=== PATIENT | female | born 1975 | race African-American/Black ===

== ENCOUNTER 2017-01-17 18:42 | Emergency (ER) | payer BC, OTHER ==
--- NOTE | 2017-01-17 19:25 | ER Document Report ---
ED Medical Screen (RME) - General Chief Complaint: Chest Pain Stated Complaint: CHEST PAIN, LEFT LEG PAIN Time Seen by Provider: 01/17/17 19:21 Notes: Patient presents with chest pain shortness of breath and left leg swelling and pain. She states the left leg has been swelling and painful for approximately 2 weeks. She states she has a history of blood clots and has had 4 previous pulmonary embolisms. She states she is currently on Eliquis but she forgets to take it 3-4 days per week. TRAVEL OUTSIDE OF THE [place] IN LAST 30 DAYS: No - Related Data Allergies/Adverse Reactions: narcotics Allergy (Uncoded 01/17/17 18:52) Home Medications: Current Home Medications Apixaban [Eliquis] 1 tab PO BID 01/17/17 [History] Atorvastatin Calcium [Atorvastatin Calcium] 1 tab PO DAILY 01/17/17 [History] Canagliflozin [Invokana] 1 tab PO DAILY 01/17/17 [History] Lisinopril/Hydrochlorothiazide [Lisinopril-Hctz 20-25 mg Tab] 1 tab PO DAILY [History] Omeprazole [Omeprazole] 1 cap PO DAILY 01/17/17 [History] Past Medical History - Social History Chew tobacco use (# tins/day): No Frequency of alcohol use: None Drug Abuse: None - Past Medical History Cardiac Medical History: Reports: Hx Hypertension Pulmonary Medical History: Reports: Hx Asthma Endocrine Medical History: Reports: Hx Diabetes Mellitus Type 2 Renal/ Medical History: Denies: Hx Peritoneal Dialysis Physical Exam - Vital signs Vitals: Temp Pulse Resp BP Pulse Ox 97.6 F 81 14 137/93 H 100 01/17/17 18:52 01/17/17 18:52 01/17/17 18:52 01/17/17 18:52 01/17/17 18:52 Course - Vital Signs Vital signs: Temp Pulse Resp BP Pulse Ox 97.6 F 81 14 137/93 H 100 01/17/17 18:52 01/17/17 18:52 01/17/17 18:52 01/17/17 18:52 01/17/17 18:52
[2017-01-17 19:52] LABS: ABSOLUTE BASOPHILS # (AUTO) 0.1 10^3/uL (0.0-0.2); ABSOLUTE EOSINOPHILS # (AUTO) 0.1 10^3/uL (0.0-0.6); ABSOLUTE LYMPHOCYTES (AUTO) 2.3 10^3/uL (0.5-4.7); ABSOLUTE MONOCYTES (AUTO) 0.6 10^3/uL (0.1-1.4); ABSOLUTE NEUT (AUTO) 7.4 10^3/uL (1.7-8.2); BASOPHILS % (AUTO) 0.6 % (0-2); EOSINOPHILS % (AUTO) 0.8 % (0-6); HEMATOCRIT 39.1 % (36.0-47.0); HEMOGLOBIN 13.2 g/dL (12.0-15.5); HGB HCT DIFFERENCE 0.5; LYMPHOCYTES % (AUTO) 22.3 % (13-45); MEAN CORPUSCULAR HEMOGLOBIN 24.9 pg (27.0-33.4); MEAN CORPUSCULAR HGB CONC 33.8 g/dL (32.0-36.0); MEAN CORPUSCULAR VOLUME 74 fl (80-97); RED BLOOD COUNT 5.31 10^6/uL (3.72-5.28); RED CELL DISTRIBUTION WIDTH 16.7 % (11.5-14.0); SEGMENTED NEUTROPHILS % (AUTO) 70.3 % (42-78); WHITE BLOOD COUNT 10.5 10^3/uL (4.0-10.5)
[2017-01-17 20:13] LABS: ALANINE AMINOTRANSFERASE 24 U/L (9-52); ALKALINE PHOSPHATASE 89 U/L (38-126); ANION GAP 13 (5-19); ASPARTATE AMINO TRANSFERASE 18 U/L (14-36); BILIRUBIN,DIRECT 0.3 mg/dL (0.0-0.4); BILIRUBIN,TOTAL 0.5 mg/dL (0.2-1.3); BLOOD UREA NITROGEN 10 mg/dL (7-20); CALCIUM 9.1 mg/dL (8.4-10.2); CARBON DIOXIDE 27 mmol/L (22-30); CHLORIDE 102 mmol/L (98-107); CREATININE RESULT 0.84 mg/dL (0.52-1.25); GLUCOSE 104 mg/dL (75-110); POTASSIUM 4.2 mmol/L (3.6-5.0); SODIUM 141.5 mmol/L (137-145); TOTAL PROTEIN 7.2 g/dL (6.3-8.2)
--- NOTE | 2017-01-17 20:30 | RADIOLOGY REPORT (SQ) ---
EXAM DESCRIPTION: CHEST PA/LAT COMPLETED DATE/TIME: 01/17/2017 8:21 pm REASON FOR STUDY: cp COMPARISON: None. EXAM PARAMETERS: NUMBER OF VIEWS: two views TECHNIQUE: Digital Frontal and Lateral radiographic views of the chest acquired. RADIATION DOSE: NA LIMITATIONS: none FINDINGS: LUNGS AND PLEURA: No opacities, masses or pneumothorax. No pleural effusion. MEDIASTINUM AND HILAR STRUCTURES: No masses or contour abnormalities. HEART AND VASCULAR STRUCTURES: Heart normal size. No evidence for failure. BONES: No acute findings. HARDWARE: None in the chest. OTHER: No other significant finding. IMPRESSION: NO SIGNIFICANT RADIOGRAPHIC FINDING IN THE CHEST. TECHNICAL DOCUMENTATION: JOB ID: [id number] [email or web address]- All Rights Reserved
--- NOTE | 2017-01-17 21:10 | EKG REPORT ---
SEVERITY:- NORMAL ECG - SINUS RHYTHM : Confirmed by: Aisha Aranda MD 17-Jan-2017 21:09:45
--- NOTE | 2017-01-17 22:04 | ER Document Report ---
ED General - General Chief Complaint: Chest Pain Stated Complaint: CHEST PAIN, LEFT LEG PAIN Time Seen by Provider: 01/17/17 19:21 Notes: Patient is a 41-year-old female who recently moved back to the area with her . She does not have family doctor in the area. She has a history of PE that occurred 2 years ago. Since then she is on Eliquis. She said since having the PE she has chest pain every day. Today she had her typical chest pain. She says she did not start having some burning and pain going into her left leg and at that time she says that made her very concerned because of her history of PE. She is on Eliquis. She does have history diabetes. She says that the pain into her leg is a burning type of pain. She says she will occasionally missed dosages of her Eliquis however again the pain that she has today not much different than her baseline pain except for when she started to think about her previous PE the pain got a little bit worse but now that is improved. She denies any fevers. No vomiting. No diarrhea. No other complaints at this time. TRAVEL OUTSIDE OF THE [place] IN LAST 30 DAYS: No - Related Data Allergies/Adverse Reactions: narcotics Allergy (Uncoded 01/17/17 18:52) Home Medications: Current Home Medications Apixaban [Eliquis] 1 tab PO BID 01/17/17 [History] Atorvastatin Calcium [Atorvastatin Calcium] 1 tab PO DAILY 01/17/17 [History] Canagliflozin [Invokana] 1 tab PO DAILY 01/17/17 [History] Lisinopril/Hydrochlorothiazide [Lisinopril-Hctz 20-25 mg Tab] 1 tab PO DAILY [History] Omeprazole [Omeprazole] 1 cap PO DAILY 01/17/17 [History] Past Medical History - Social History Smoking Status: Never Smoker Chew tobacco use (# tins/day): No Frequency of alcohol use: None Drug Abuse: None Family History: Reviewed & Not Pertinent Patient has suicidal ideation: No Patient has homicidal ideation: No - Past Medical History Cardiac Medical History: Reports: Hx Hypertension Pulmonary Medical History: Reports: Hx Asthma Endocrine Medical History: Reports: Hx Diabetes Mellitus Type 2 Renal/ Medical History: Denies: Hx Peritoneal Dialysis Review of Systems - Review of Systems Notes: My Normal Review Basic REVIEW OF SYSTEMS: CONSTITUTIONAL : Denies fever, chills, or sweats. Denies recent illness. EENT: Denies eye, ear, throat, or mouth pain or symptoms. Denies nasal or sinus congestion. CARDIOVASCULAR: Has chest pain every day. RESPIRATORY: Denies cough, cold, or chest congestion. Denies shortness of breath, difficulty breathing, or wheezing. GASTROINTESTINAL: Denies abdominal pain. Denies nausea, vomiting, or diarrhea. Denies constipation. Last BM: MUSCULOSKELETAL: Left leg pain SKIN: Denies rash or skin lesions. HEMATOLOGIC : On Eliquis NEUROLOGICAL: Denies altered mental status or loss of consciousness. Denies headache. Denies weakness or paralysis or loss of use of either side. Denies problems with gait or speech. Denies sensory or motor loss. ALL OTHER SYSTEMS REVIEWED AND NEGATIVE. Physical Exam - Vital signs Vitals: Temp Pulse Resp BP Pulse Ox 97.6 F 81 14 137/93 H 100 01/17/17 18:52 01/17/17 18:52 01/17/17 18:52 01/17/17 18:52 01/17/17 18:52 - Notes Notes: General Appearance: Well nourished, alert, cooperative, no acute distress, no obvious discomfort. Well-appearing. Vitals: reviewed, See vital signs table. Head: no swelling or tenderness to the head Eyes: PERRL, EOMI, Conjuctiva clear Mouth: No decreasd moisture Neck: Supple, no neck tenderness, No thyromegaly Lungs: No wheezing, No rales, No rhonci, No accessory muscle use, good air exchange bilaterally. Heart: Normal rate, Regular rythm, No murmur, no rub Abdomen: Normal BS, soft, No rigidity, No abdominal tenderness, No guarding, no rebound, no abdominal masses, no organomegaly Extremities: strength 5/5 in all extremities, good pulses in all extremities, mild pain to palpation over the left calf, no edema. Skin: warm, dry, appropriate color, no rash Neuro: speech clear, oriented x 3, normal affect, responds appropriately to questions. Course - Re-evaluation Re-evalutation: 01/17/17 22:53 Patient is very well-appearing. Her pain in her leg is more of a burning type sensation. This could be related to diabetic neuropathy. I did talked her length about this. She says her sugars do tend to fluctuate. Explained to her the importance of not missing any of her dosages of her medications. She says that she still has all her meds but she may run out of her diabetes medications about a week. She does not remember the dosage of her medication. I informed her that if she is unable to get into a new primary care doctor before she runs out that she should return to the ER so we can at least refill her medications as we do not want her to run out of her meds. Patient says her chest pain is just like the chest pain that she has every day. She said it did become a bit worse today when her legs are hurting as this made her stressed because she started thinking about her PE. She has been told in the past by her previous doctors that her daily chest pain is related to scarring from her previous PE. Patient is on Eliquis. She does not have any tachypnea or tachycardia. She is not hypoxic. I do not feel that she needs a repeat CTA of her chest. Her venous Doppler of her left leg is normal. Encouraged her to continue take her medications as prescribed. I do not suspect coronary disease. EKG and troponin are negative. Also chest pain is related to her previous pain that she has had daily since having her PE. Patient will be discharged home but was strongly encouraged to return to ER if she has different kind of chest pain, worsening chest pain, difficulty breathing, fevers, or feels unwell. Patient agrees with plan will be discharged home. Of note the patient's is in the room and started to tell me about a funny feeling that he has had in his chest. I informed him that different kinds of sensations in the chest and pain can sometimes represent potential heart attacks and different people. Informed him that he should be evaluated for this. I told him we be happy to see him here and that he should check in to the ER. I told him that if he is unwilling to check in the ER that he must see a doctor soon to have this evaluated. Dictation of this chart was performed using voice recognition software; therefore, there may be some unintended grammatical errors. - Vital Signs Vital signs: Temp Pulse Resp BP Pulse Ox 97.6 F 81 14 137/93 H 100 01/17/17 18:52 01/17/17 18:52 01/17/17 18:52 01/17/17 18:52 01/17/17 18:52 - Laboratory Result Diagrams: 01/17/17 19:41 01/17/17 19:41 Laboratory results interpreted by me: 01/17/17 19:41 RBC 5.31 H MCV 74 L MCH 24.9 L RDW 16.7 H - EKG Interpretation by Me Additional EKG results interpreted by me: 01/17/17 22:03 EKG is reviewed and interpreted by me. EKG shows normal sinus rhythm with rate of [address] segment elevation or depression. No ischemic T-wave inversions. LA interval, QRS duration, QTc intervals are within normal range. No old EKG available for comparison. Discharge - Discharge Clinical Impression: Chest pain Qualifiers: Chest pain type: unspecified Qualified Code(s): R07.9 - Chest pain, unspecified Leg pain Qualifiers: Laterality: left Qualified Code(s): M79.605 - Pain in left leg Condition: Good Disposition: HOME, SELF-CARE Instructions: Family Physicians / Practices Additional Instructions: Please do not miss dosages of your medications. Please return to the ER immediately if you have a chest pain that is different than your typical chest pain, if you have difficulty breathing, or if you feel unwell. PLease return to the ER if you are about to run out of your meds and need refills and do not yet have an appointment with a new physician. Please keep your blood sugars under good control.
[2017-01-17 23:31] VITALS: BP 144/94
--- NOTE | 2017-01-18 07:31 | XCELERA REPORT ---
[address] [address] Lower Extremity Venous Evaluation Name: HEATHER GRAY Age: 41 yrs Gender: Female : 1975 Patient Status: Preadmit Patient Location: ER Study Date: 01/17/2017 08:55 PM Procedure: Color flow and duplex imaging of the veins of the left lower extremity as well as the right Common Femoral vein. Reason For Study: leg swelling pain Ordering Physician: ESTELA STEWART Performed By: Kirstin Greene Right Sided Venous Evaluation The right common femoral vein is fully compressible. Spontaneous and phasic flow is present in the right common femoral vein. Left Sided Venous Evaluation Normal vessel filling wall to wall, compression and augmentation as well as Colour flow down to the infrageniculate veins. Interpretation Summary No duplex evidence of DVT or obstruction in the left lower extremity nor in the right Common Femoral vein. : ESTELA STEWART > Al Jay
== END 2017-01-17 23:31 | disposition home or self-care (01) ==
LOC: ER 18:42
DX: R07.9 Chest pain, unspecified (principal); M79.605 Pain in left leg; E11.9 Type 2 diabetes mellitus without complications; Z86.711 Personal history of pulmonary embolism; Z79.01 Long term (current) use of anticoagulants; Z79.899 Other long term (current) drug therapy
CPT/HCPCS: 36415; 71020; 80053; 84484; 85025; 93005; 93010; 93971; 99285

== ENCOUNTER → 2017-05-19 | Outpatient (CLI) | payer BC, MEDICAID ==
--- NOTE | 2017-05-19 15:26 | RADIOLOGY REPORT (SQ) ---
EXAM DESCRIPTION: CHEST PA/LATERAL COMPLETED DATE/TIME: 05/19/2017 1:50 pm REASON FOR STUDY: CHEST PAIN, UNSPECIFIED R07.9 CHEST PAIN, UNSPECIFIED COMPARISON: 2016. NUMBER OF VIEWS: Two view. TECHNIQUE: Frontal and lateral radiographic views of the chest acquired. LIMITATIONS: None. FINDINGS: LUNGS AND PLEURA: Low lung volumes. No opacities, masses or pneumothorax. No pleural eff usion. MEDIASTINUM AND HILAR STRUCTURES: No masses. No contour abnormalities. HEART AND VASCULAR STRUCTURES: Heart normal in size and contour. No evidence for failure. BONES: No acute findings. HARDWARE: None in the chest. OTHER: No other significant finding. IMPRESSION: LOW LUNG VOLUMES. NO SIGNIFICANT RADIOGRAPHIC FINDING IN THE CHEST. TECHNICAL DOCUMENTATION: JOB ID: [id number] [employer]- All Rights Reserved Reading location - IP/workstation name: [email or web address]
== END ==
LOC: OD 13:39
PROVIDERS: ATTEND Student in an Organized Health Care Education/Training Program
DX: R07.89 Other chest pain (principal)
CPT/HCPCS: 71046

== ENCOUNTER 2017-06-13 12:03 | Emergency (ER) | payer OTHER, MEDICAID ==
--- NOTE | 2017-06-13 12:45 | ER Document Report ---
ED Medical Screen (RME) - General Chief Complaint: Leg Pain Stated Complaint: PAIN IN LEGS Time Seen by Provider: 06/13/17 12:41 Notes: Patient is a 41-year-old female, past medical history bilateral lower extremity DVTs, PE (on Eliquiis), presents with 4 days of increased B/L leg swelling, calf pain and left upper chest pain, worse with deep breaths. She recently was on a long car ride. Says she is very compliant with her Eliquis. PE: Tenderness over B/L calves. Strong distal pulses. No respiratory distress. Lungs clear to auscultation bilaterally. I have greeted and performed a rapid initial assessment of this patient. A comprehensive ED assessment and evaluation of the patient, analysis of test results and completion of the medical decision making process will be conducted by additional ED providers. TRAVEL OUTSIDE OF THE [place] IN LAST 30 DAYS: No - Related Data Allergies/Adverse Reactions: narcotics Allergy (Uncoded 01/17/17 18:52) Past Medical History - Social History Chew tobacco use (# tins/day): No Frequency of alcohol use: None Drug Abuse: None - Past Medical History Cardiac Medical History: Reports: Hx Hypertension Pulmonary Medical History: Reports: Hx Asthma Endocrine Medical History: Reports: Hx Diabetes Mellitus Type 2 Renal/ Medical History: Denies: Hx Peritoneal Dialysis Physical Exam - Vital signs Vitals: Temp Pulse Resp BP Pulse Ox 97.9 F 78 18 132/75 H 100 06/13/17 12:07 06/13/17 12:07 06/13/17 12:07 06/13/17 12:07 06/13/17 12:07 Course - Vital Signs Vital signs: Temp Pulse Resp BP Pulse Ox 97.9 F 78 18 132/75 H 100 06/13/17 12:07 06/13/17 12:07 06/13/17 12:07 06/13/17 12:07 06/13/17 12:07
[2017-06-13 13:25] LABS: ABSOLUTE EOSINOPHILS # (AUTO) 0.1 10^3/uL (0.0-0.6); ABSOLUTE MONOCYTES (AUTO) 0.5 10^3/uL (0.1-1.4); ABSOLUTE NEUT (AUTO) 6.7 10^3/uL (1.7-8.2); BASOPHILS % (AUTO) 0.3 % (0-2); EOSINOPHILS % (AUTO) 1.6 % (0-6); HEMATOCRIT 40.7 % (36.0-47.0); HEMOGLOBIN 13.2 g/dL (12.0-15.5); LYMPHOCYTES % (AUTO) 21.2 % (13-45); MEAN CORPUSCULAR HEMOGLOBIN 24.5 pg (27.0-33.4); MEAN CORPUSCULAR HGB CONC 32.3 g/dL (32.0-36.0); MEAN CORPUSCULAR VOLUME 76 fl (80-97); MONOCYTES % (AUTO) 5.7 % (3-13); PLATELET COUNT 352 10^3/uL (150-450); RED BLOOD COUNT 5.36 10^6/uL (3.72-5.28); RED CELL DISTRIBUTION WIDTH 15.4 % (11.5-14.0); SEGMENTED NEUTROPHILS % (AUTO) 71.2 % (42-78); TOTAL CELLS COUNTED % (AUTO) 100 %; WHITE BLOOD COUNT 9.5 10^3/uL (4.0-10.5)
[2017-06-13 13:33] LABS: INTERNATIONAL RATION (INR) 1.24; PROTHROMBIN TIME 16.2 SEC (11.4-15.4)
[2017-06-13 13:34] LABS: PARTIAL THROMBOPLASTIN TIME 40.2 SEC (23.5-35.8)
[2017-06-13 13:36] LABS: ALANINE AMINOTRANSFERASE 29 U/L (9-52); ALBUMIN 4.1 g/dL (3.5-5.0); ALKALINE PHOSPHATASE 88 U/L (38-126); ANION GAP 12 (5-19); ASPARTATE AMINO TRANSFERASE 24 U/L (14-36); BILIRUBIN,DIRECT 0.4 mg/dL (0.0-0.4); BILIRUBIN,TOTAL 0.4 mg/dL (0.2-1.3); BLOOD UREA NITROGEN 14 mg/dL (7-20); CARBON DIOXIDE 30 mmol/L (22-30); CHLORIDE 101 mmol/L (98-107); CREATINE KINASE 86 U/L (30-135); GLUCOSE 124 mg/dL (75-110); POTASSIUM 4.1 mmol/L (3.6-5.0); SODIUM 142.5 mmol/L (137-145); TOTAL PROTEIN 7.7 g/dL (6.3-8.2)
--- NOTE | 2017-06-13 13:55 | ER Document Report ---
ED General - General Chief Complaint: Leg Pain Stated Complaint: PAIN IN LEGS Time Seen by Provider: 06/13/17 12:41 Information source: Patient Notes: Patient is a 41-year-old female with past medical history of DVT/pulmonary embolism 2014 currently on Eliquis who states that this past she drove to [place] returning yesterday. She states on Monday she started to have some swelling to both legs with some pain in the left calf. She states some shortness of breath. She denies any runny nose, congestion, cough, or fevers. Patient states she has daily chest tightness multiple times a day, central pulmonary embolism in 2014. She states no increase in the baseline pain. She denies any aggravating or relieving factors. She states her left leg is chronically larger than her right. She denies any recent trauma or falls. She does have a history of asthma as well. She states she does not smoke. TRAVEL OUTSIDE OF THE [place] IN LAST 30 DAYS: No - HPI Onset: Other - See above Onset/Duration: Sudden - See above Quality of pain: No pain - See above Severity: Mild Associated symptoms: Other - See above Exacerbated by: Denies Relieved by: Denies - See above Similar symptoms previously: No Recently seen / treated by doctor: No - Related Data Allergies/Adverse Reactions: narcotics Allergy (Uncoded 01/17/17 18:52) Past Medical History - General Information source: Patient - Social History Smoking Status: Never Smoker Cigarette use (# per day): No Chew tobacco use (# tins/day): No Smoking Education Provided: No Frequency of alcohol use: None Drug Abuse: None Family History: Reviewed & Not Pertinent Patient has suicidal ideation: No Patient has homicidal ideation: No - Past Medical History Cardiac Medical History: Reports: Hx Hypertension Pulmonary Medical History: Reports: Hx Asthma Endocrine Medical History: Reports: Hx Diabetes Mellitus Type 2 Renal/ Medical History: Denies: Hx Peritoneal Dialysis Review of Systems - Review of Systems Constitutional: denies: Fever EENT: denies: Eye discharge, Nose discharge Cardiovascular: denies: Palpitations, Heart racing, Syncope, Dizziness, Lightheaded Respiratory: Short of breath Gastrointestinal: denies: Vomiting Genitourinary: denies: Dysuria Musculoskeletal: Leg swelling Skin: Other - no hives. denies: Rash Neurological/Psychological: Other - no slurred speech -: Yes All other systems reviewed and negative Physical Exam - Vital signs Vitals: Temp Pulse Resp BP Pulse Ox 97.9 F 78 18 132/75 H 100 06/13/17 12:07 06/13/17 12:07 06/13/17 12:07 06/13/17 12:07 06/13/17 12:07 Notes: Reviewed vital signs and nursing note as charted by RN. CONSTITUTIONAL: Alert and oriented and responds appropriately to questions. Well -appearing; well-nourished HEAD: Normocephalic; atraumatic EYES: PERRL; Conjunctivae clear, sclerae non-icteric CARD: Regular rate and rhythm; no murmurs, no clicks, no rubs, no gallops; symmetric distal pulses RESP: Normal chest excursion without splinting or tachypnea; breath sounds clear and equal bilaterally; no wheezes, no rhonchi, no rales ABD/GI: Normal bowel sounds; non-distended; soft, non-tender with an elevated BMI BACK: The back appears normal and is non-tender to palpation EXT: Normal ROM in all joints; non-tender to palpation; mild tenderness to the left posterior calf. Left calf is larger than right which is baseline for the patient. I do not detect any edema to bilateral lower extremities SKIN: Normal color for age and race; warm; no acute lesions noted NEURO: Moves all extremities equally; Motor and sensory function intact PSYCH: The patient's mood and manner are appropriate. Grooming and personal hygiene are appropriate. Course - Re-evaluation Re-evalutation: EKG shows a heart rate of 60, normal sinus rhythm, normal axis, no obvious ST elevation or depression 06/13/17 13:56 Given the above history and physical examination, I will order basic labs, BNP, Doppler ultrasound of the left lower extremity, x-ray of the chest, and a d- dimer. Given that the patient has a heart rate of 60 with good oxygen saturation, already on Eliquis, I do believe a d-dimer would be sufficient as I believe that the patient has low probability for pulmonary embolism at this time. I do believe the risk of ACS or dissection to be unlikely. I would like to limit breast radiation at this time. 06/13/17 14:37 Patient's cardiac labs and d-dimer are unremarkable. Chest x-ray shows normal heart, normal mediastinum, no fractures, normal lung carr, no pneumothorax. 06/13/17 14:47 Cardiac labs, bilateral Doppler studies, and d-dimer were unremarkable. Vital signs are stable. Normal troponin. Given the above history, physical, laboratory values, x-ray of the chest, d- dimer, and bilateral Dopplers, patient will be discharged home with strict return precautions and follow-up with the primary provider continuing the Eliquis. - Vital Signs Vital signs: Temp Pulse Resp BP Pulse Ox 97.9 F 78 18 132/75 H 100 06/13/17 12:07 06/13/17 12:07 06/13/17 12:07 06/13/17 12:07 06/13/17 12:07 - Laboratory Result Diagrams: 06/13/17 13:05 06/13/17 13:05 Laboratory results interpreted by me: 06/13/17 06/13/17 06/13/17 13:05 13:05 13:05 RBC 5.36 H MCV 76 L MCH 24.5 L RDW 15.4 H PT 16.2 H APTT 40.2 H Glucose 124 H NT-Pro-B Natriuret Pep 06/13/17 13:05 RBC MCV MCH RDW PT APTT Glucose NT-Pro-B Natriuret Pep 128 H Discharge - Discharge Clinical Impression: Left leg swelling, Shortness of breath Chest pain Qualifiers: Chest pain type: unspecified Qualified Code(s): R07.9 - Chest pain, unspecified Condition: Good Disposition: HOME, SELF-CARE Additional Instructions: Come back immediately for any increased pain, increased leg swelling, fevers, shortness of breath, weakness or numbness, or any other acute problems. Please follow-up with the primary care physician as we have discussed. Referrals: VEGA BAILON, [Primary Care Provider] - Follow up as needed
--- NOTE | 2017-06-13 14:20 | RADIOLOGY REPORT (SQ) ---
EXAM DESCRIPTION: CHEST 2 VIEWS COMPLETED DATE/TIME: 06/13/2017 2:10 pm REASON FOR STUDY: 21; cp and sob COMPARISON: 05/19/2017. EXAM PARAMETERS: NUMBER OF VIEWS: two views TECHNIQUE: Digital Frontal and Lateral radiographic views of the chest acquired. RADIATION DOSE: NA LIMITATIONS: none FINDINGS: LUNGS AND PLEURA: No opacities, masses or pneumothorax. No pleural effusion. MEDIASTINUM AND HILAR STRUCTURES: No masses or contour abnormalities. HEART AND VASCULAR STRUCTURES: Heart normal size. No evidence for failure. BONES: No acute findings. HARDWARE: None in the chest. OTHER: No other significant finding. IMPRESSION: NO ACUTE RADIOGRAPHIC FINDING IN THE CHEST. TECHNICAL DOCUMENTATION: JOB ID: [id number] [employer]- All Rights Reserved Reading location - IP/workstation name: [email or web address]
[2017-06-13 15:23] VITALS: BP 138/85
--- NOTE | 2017-06-13 21:36 | EKG REPORT ---
SEVERITY:- NORMAL ECG - SINUS RHYTHM : Confirmed by: Marisabel Leiva 13-Jun-2017 21:35:51
--- NOTE | 2017-06-14 08:04 | XCELERA REPORT ---
[address] [address] Lower Extremity Venous Evaluation Name: HEATHER GRAY Age: 41 yrs Gender: Female : 1975 Patient Status: Emergency Patient Location: ER Study Date: 06/13/2017 02:15 PM Procedure: Color flow and duplex imaging bilaterally of the veins of the lower extremities as well as the Common Femoral veins. Reason For Study: Hx DVT, increased leg swelling Ordering Physician: GHAZALA BETANCOURT Performed By: Herb Sweeney Right Sided Venous Evaluation Normal vessel filling wall to wall, compression and augmentation as well as Colour flow down to the infrageniculate veins. Left Sided Venous Evaluation Normal vessel filling wall to wall, compression and augmentation as well as Colour flow down to the infrageniculate veins. Interpretation Summary No duplex evidence of DVT or obstruction in the bilateral lower extremities. : GHAZALA BETANCOURT [place]
== END 2017-06-13 15:24 | disposition home or self-care (01) ==
LOC: ER 12:03
DX: R07.9 Chest pain, unspecified (principal); M79.89 Other specified soft tissue disorders; R06.02 Shortness of breath; M79.605 Pain in left leg; Z86.718 Personal history of other venous thrombosis and embolism; Z86.711 Personal history of pulmonary embolism; Z79.01 Long term (current) use of anticoagulants; I10 Essential (primary) hypertension; J44.9 Chronic obstructive pulmonary disease, unspecified; E11.9 Type 2 diabetes mellitus without complications
CPT/HCPCS: 36415; 71046; 80053; 82550; 83880; 84484; 84703; 85025; 85379; 85610; 85730; 93005; 93010; 93970; 99284

== ENCOUNTER → 2017-06-28 | Outpatient (CLI) | payer OTHER, MEDICAID ==
[2017-07-01 12:56] LABS: ANTITHROMBIN III ACTIVITY 132 % (75-135); FACTOR VII ACTIVITY 127 % (51-186); FACTOR VIII ACTIVITY 196 % (57-163)
[2017-07-02 06:22] LABS: ANGIOTENSIN-CONVERTING ENZYME 17 U/L (14-82); IMMUNOGLOBULIN A 435 mg/dL (87-352)
[2017-07-03 13:37] LABS: PROTEIN C ACTIVITY 129 % (73-180); PROTEIN C ANTIGEN 93 % (60-150)
[2017-07-03 14:20] LABS: DILUTE RUSSELL VIPOR VENOM 55.4 sec (0.0-47.0); PROTEIN S FREE 98 % (57-157); PROTEIN S FUNCTIONAL 75 % (63-140); PROTEIN S TOTAL 93 % (60-150)
[2017-07-04 07:29] LABS: HOMOCYST(E)INE PLASMA 8.7 umol/L (0.0-15.0)
== END ==
LOC: OD 17:23
PROVIDERS: ATTEND Internal Medicine Pulmonary Disease
DX: I26.92 Saddle embolus of pulmonary artery without acute cor pulmonale (principal); Z82.49 Family history of ischemic heart disease and other diseases of the circulatory system
CPT/HCPCS: 36415; 81241; 82164; 82310; 82784; 83090; 85230; 85240; 85300; 85302; 85305; 85306; 85613; 85730; 86698

== ENCOUNTER → 2017-07-05 | Outpatient (CLI) | payer MEDICARE, MEDICAID ==
--- NOTE | 2017-07-05 11:27 | RADIOLOGY REPORT (SQ) ---
EXAM DESCRIPTION: CHEST 2 VIEWS COMPLETED DATE/TIME: 07/05/2017 11:13 am REASON FOR STUDY: SADDLE EMBOLUS OF PULMONARY ARTERY (I26.92) COMPARISON: 06/13/2017 EXAM PARAMETERS: NUMBER OF VIEWS: two views TECHNIQUE: Digital Frontal and Lateral radiographic views of the chest acquired. RADIATION DOSE: NA LIMITATIONS: none FINDINGS: LUNGS AND PLEURA: No opacities, masses or pneumothorax. No pleural effusion. MEDIASTINUM AND HILAR STRUCTURES: No masses or contour abnormalities. HEART AND VASCULAR STRUCTURES: Heart normal size. No evidence for failure. BONES: No acute findings. HARDWARE: None in the chest. OTHER: No other significant finding. IMPRESSION: NO ACUTE RADIOGRAPHIC FINDING IN THE CHEST. TECHNICAL DOCUMENTATION: JOB ID: [id number] [employer]- All Rights Reserved Reading location - IP/workstation name: [email or web address]
--- NOTE | 2017-07-05 11:59 | RADIOLOGY REPORT (SQ) ---
EXAM DESCRIPTION: NM LUNG VENT/PERF SCAN COMPLETED DATE/TIME: 07/05/2017 11:46 am REASON FOR STUDY: SADDLE EMBOLIS OF PULMONARY ARTERY WITHOUT ACUTE COR PULMONALE I26.92 SADDLE EMBO KRYSTLE OF PULMONARY ARTERY W/O ACUTE COR PULM COMPARISON: None. RADIONUCLIDE AND DOSE: 5.17 +5.32 millicuries TC-99m MAA Intravenous. 1st dosed infiltrated. 31.6 millicuries TC-99m DTPA Inhaled aerosol TECHNIQUE: Eight views of the lungs acquired post ventilation of DTPA aerosol. Eight matching views of the lungs acquired following injection of MAA. LIMITATIONS: None. FINDINGS: VENTILATION: Symmetric and homogeneous distribution of DTPA aerosol during ventilatory pha se. No significant areas of photopenia. PERFUSION: Perfusion images with normal homogenous activity and no wedge-shaped or segmental defects. No ventilation-perfusion mismatches. OTHER: No other significant finding. IMPRESSION: Low probability for pulmonary embolus. TECHNICAL DOCUMENTATION: JOB ID: [id number] [employer]- All Rights Reserved Reading location - IP/workstation name: [email or web address]
== END ==
LOC: RAD 09:43
PROVIDERS: ATTEND Internal Medicine Pulmonary Disease
DX: I26.92 Saddle embolus of pulmonary artery without acute cor pulmonale (principal)
CPT/HCPCS: 71046; 78582; A9540; A9567; Q9969

== ENCOUNTER → 2017-07-18 | Outpatient (CLI) | payer MEDICARE, MEDICAID ==
--- NOTE | 2017-07-18 09:29 | ST Modified Barium Swallow ---
Recommendation - Recommendations Recommendations: Regular diet with thin liquids Medical Diagnoses - Medical Diagnoses Medical Diagnosis Description & ICD-10 Code(s): Gastroesophageal Reflux Disease (K21.9), assessed for dysphagia (R13.10) Other Medical Diagnoses/Co-Morbidities: Patient reports hypertension, diabetes mellitus type 2, hyperlipidemia, deep vein thrombosis, pulmonary embolism, and overweight ST Modified Barium Swallow - General Date: 07/18/17 Referring Physician: Curt Risks/Precautions: None Date of Onset: 02/28/12 - diagnosed with GERD Reason for Referral: GERD (K12.9) - History History obtained from: Patient Medications: Per patient: omeprazole, eloquis, janumet, lisinopril, atorvastatin , multivitamin Allergies: Per patient: narcotics, seasonal allergies - Functional Status Prior Functional Status: INDEPENDENT: ADL, communication, feeding - Subjective Patient/caregiver goal(s): r/o aspiration, r/o struct. abnormality Cognitive-Linguistic Function: WNL Speech Intelligibility: WNL Current Nutritional Means: PO Current PO diet: Regular - with thin liquids Current symptoms: other - history of reflux vocal cord polyps Pain: no signs/symptoms of pain - Objective Assessment: Upright, Left Lateral - Food Trials Used Food trials used: Thin liquids, Pureed, Regular The patient: Was Able to Self Feed, via cup, via spoon, via straw - Oral-Motor Skills Dentition: Full Velo-pharyngeal function: Unremarkable Laryngeal Function: clear voicing Oral Motor Skills: WNL - Assessment Oral prep: Normal Labial closure: Adequate Leakage: None Mastication: Adequate Lingual Movement: Normal Oral stage: Normal for this Procedure - Pharyngeal Stage Initiation of Pharyngeal Stage Reflex: Normal - for thin and regular consistencies, Delayed - mild delay with pudding, but swallow initiated within 1 second at level of valleculae Decreased laryngeal elevation: No Reduced Velopharyngeal Closure: no Reduced pressure generation: No reduced tongue-based retraction: No Pre-swallow pooling in valleculae: Mild - only with pudding Reduced Thyro-Hyoid approximation: No Reduced epiglottic excursion: No Reduced pharyngeal peristalsis/contraction: No Post-swallow residulas vallecular: None Post-Swallow residuals in pyriforms: None Post-Swallow Residuals: no residuals Reduced Cricopharyngeal opening: No - Esophageal Stage Cricopharyngeal Function: Normal Upper Esophageal Transit: Normal Cervical Osteophytes noted: No - Fall Risk Assessment Medications/Conditions that increase fall risks include: Antidepressants, sedatives, anti-arrhythmic, diuretic, benzodiazipenes, neuroleptics. BP regulation problems, cardiac problems, balance or gait deficits, neurological problems. Is patient considered at risk for falls: no Fall Risk Actions Taken: No action needed - Behavioral Observations During evaluation process patient: was pleasant, was cooperative, able to answer questions, provided medical history - Treatment / Educational Needs: Treatment/Education Needs: Treatment consisted of patient education on the role of the Speech Pathologist. Patient's plan of care and golas were communicated as well as scheduling and attendance policies. Recommendations for initial home program were shared. Patient demonstrated understanding and verbalized agreement. Initial home program recommendations: No home program established as patient's swallow function is within normal limits - Impression/Summary Laryngeal Penetration: No Tracheal Aspiration: no Patient presents with: Normal swallow at eval Risk of Aspiration: Minimal Risk of nutritional compromise: WNL - Recommendations NPO: no Solid diet recommendations: Regular Liquid Diet Modification: Thin Strict aspiration precautions: No Pt/Family education and followup with MD: Yes Dysphagia therapy with LOOM FIXER HELPER: no - Recommended that patient continue to follow up with her primary care doctor as well as a gastrointestinal specialist Supervision: Independent - Time Total Time: 20 - Plan of Care Patient to follow-up with referring physician: Yes Strategies to optimize patient understanding include:: ongoing assessment of educational needs, implementation of educational strategies, and re-education. - - -: Thank you for the opportunity to work with this patient and his/her family. Should you have any questions about this patient's plan or progress, I can be reached at [phone]. Charge G Code? - - -: Yes ST F.L. Impairment Category - Rationale Based On Rationale Based On: Clin Find., Obj Measures - Swallowing Current G8996: CH 0% Impaired Goal G8997: CH 0% Impaired Discharge G8998: CH 0% Impaired
--- NOTE | 2017-07-18 09:48 | RADIOLOGY REPORT (SQ) ---
EXAM DESCRIPTION: COOKIE SWALLOW COMPLETED DATE/TIME: 07/18/2017 8:20 am REASON FOR STUDY: GERD (K21.9) K21.9 GASTRO-ESOPHAGEAL REFLUX DISEASE WITHOUT ESOPHAGITIS COMPARISON: None. TECHNIQUE: Videofluoroscopic swallowing examination was performed in conjunction with speech patholo gy. Videofluoroscopic imaging was obtained and reviewed and these are the findings: RADIATION DOSE: 1 fluoroscopic image was saved to pac's. 39 seconds images saved to PACS. LIMITATIONS: None FINDINGS: The patient was brought into the fluoro room and placed upright on a modified barium swall ow chair. The patient was then given multiple consistencies mixed with barium to swallow under live fluoroscopic video guidance. According to the Speech Pathologist there was no penetration or aspirat ion. IMPRESSION: NO EVIDENCE OF PENETRATION OR ASPIRATION.PLEASE SEE SPEECH PATHOLOGIST REPORT FOR OTHER FINDINGS AND RECOMMENDATIONS. COMMENT: Quality ID [id number]: Final reports for procedures using fluoroscopy that document radiation exp osure indices, or exposure time and number of fluorographic images (if radiation exposure indices are not available) TECHNICAL DOCUMENTATION: JOB ID: [id number]- All Rights Reserved Reading location - IP/workstation name: [email or web address]
== END ==
LOC: RAD 07:47
PROVIDERS: ATTEND Internal Medicine Pulmonary Disease
DX: K21.9 Gastro-esophageal reflux disease without esophagitis (principal); R06.00 Dyspnea, unspecified; R13.10 Dysphagia, unspecified
CPT/HCPCS: 74230; 92611; G8996; G8997; G8998

== ENCOUNTER → 2017-08-03 | Outpatient (CLI) | payer MEDICARE, MEDICAID ==
--- NOTE | 2017-08-04 08:47 | XCELERA REPORT ---
[address] [address] Tel: [phone] Fax: [phone] Lower Extremity Arterial Evaluation Name: HEATHER GRAY Age: 41 yrs Gender: Female : 1975 Patient Status: Outpatient Patient Location: Study Date: 08/03/2017 03:16 PM Procedure: Ankle brachial indicies performed. Reason For Study: PVD Ordering Physician: VEGA BAILON Performed By: Yanira Villareal Right Side Arterial Evaluation NADIA in Posterior Tibial:1.06 . Multiphasic waveform. Left Side Arterial Evaluation NADIA in Posterior Tibial:1.06 . Multiphasic waveform. Amplitude less than right. Interpretation Summary Normal NADIA. Suggesting near normal arterial system, within the limitations of this technique. : VEGA BAILON > Al Jay
== END ==
LOC: SP 14:30
PROVIDERS: ATTEND Student in an Organized Health Care Education/Training Program
DX: I73.9 Peripheral vascular disease, unspecified (principal); G60.9 Hereditary and idiopathic neuropathy, unspecified; E11.9 Type 2 diabetes mellitus without complications; M79.606 Pain in leg, unspecified
CPT/HCPCS: 93922